=== PATIENT | male | born 1980 | race Caucasian/White ===

== ENCOUNTER → 2023-10-20 15:47 | Outpatient (REF) | payer BC, SELFPAY | LOC: HWRAD 15:47 | PROVIDERS: ATTENDING PHYSICIAN Orthopaedic Surgery; FAMILY PHYSICIAN Family Medicine | DX: S42.141A Displaced fracture of glenoid cavity of scapula, right shoulder, initial encounter for closed fracture (principal); S42.151A Displaced fracture of neck of scapula, right shoulder, initial encounter for closed fracture | CPT/HCPCS: 73200 ==